=== PATIENT | female | born 1980 | race Caucasian/White ===

== ENCOUNTER 2021-07-16 23:46 | Inpatient (IN) | payer MEDICAID ==
[~2021-07-16] VITALS: Ht 165.1 cm; Wt 99.8 kg
[~2021-07-16 23:46] MED LIST: CLOP-31
[2021-07-17] MEDS ORDERED: SODIUM CHLORIDE 0.9% 1,000 ML IV ONE (00:15)
[2021-07-17 00:33] LABS: BASOPHILS % 0.1 % (0.0-2.0); HEMATOCRIT. 35.5 % (36.0-48.0); HEMOGLOBIN. 11.6 g/dL (12.0-16.0); LYMPHOCYTES % 8.6 % (20.0-50.0); MEAN CORPUSCULAR HEMOGLOBIN 26.8 pg (28.0-32.0); MEAN CORPUSCULAR VOLUME 82.3 fL (81.0-99.0); MEAN PLATELET VOLUME 9.9 fl (7.4-10.4); MONOCYTES % 5.6 % (2.0-8.0); NEUTROPHILS % 85.7 % (40.0-76.0); PLATELET 252 x1000/uL (130-400); RED BLOOD CELL COUNT 4.31 mill/uL (4.2-5.4); RED CELL DISTRIBUTION WIDTH 15.4 % (11.6-14.6)
[2021-07-17 00:37] LABS: CHLORIDE 111 mEq/L (98-107)
[2021-07-17 00:38] LABS: HCG SCREEN NEGATIVE
[2021-07-17 00:41] LABS: ETHANOL BLOOD < 10 mg/dL
[2021-07-17 02:53] LABS: CLARITY URINE CLEAR (CLEAR); COLOR URINE YELLOW (YELLOW); KETONES URINE 1+ (NEGATIVE); LEUKOCYTE ESTERASE URINE NEGATIVE (NEGATIVE); NITRITE URINE NEGATIVE (NEGATIVE); OCCULT BLOOD URINE NEGATIVE (NEGATIVE); PH URINE 6.5 (4.5-8.0); PROTEIN URINE NEGATIVE (NEGATIVE); SPECIFIC GRAVITY URINE 1.025 (1.005-1.030); UROBILINOGEN URINE 0.2 E.U./dL (0.2-1.0)
[2021-07-17 03:02] LABS: *AMPHETAMINES SCREEN URINE NEGATIVE (NEGATIVE); *BARBITURATES SCREEN URINE NEGATIVE (NEGATIVE); *BENZODIAZEPINES SCREEN URINE NEGATIVE (NEGATIVE); *COCAINE SCREEN URINE NEGATIVE (NEGATIVE)
[2021-07-17 03:03] LABS: CANNABINOID URINE SCREEN NEGATIVE (NEGATIVE); METHADONE URINE SCREEN NEGATIVE (NEGATIVE); OPIATES URINE SCREEN NEGATIVE (NEGATIVE); PHENCYCLIDINE URINE SCREEN NEGATIVE (NEGATIVE)
[2021-07-17 08:25] VITALS: BP 169/105
[2021-07-17 10:37] VITALS: BP 169/105
[2021-07-17 12:00] VITALS: BP 168/94
[2021-07-17] MEDS ORDERED: CLONIDINE 0.1MG TABLET PO PRN (12:15)
[2021-07-17] MEDS ORDERED: ONDANSETRON HCL 4MG/2ML INJ IV PRN (12:15)
[2021-07-17] MEDS ORDERED: ENOXAPARIN 40MG/0.4ML SYR SUBCUT SCH (12:15)
[2021-07-17] MEDS ORDERED: ACETAMINOPHEN 325MG TABLET PO PRN (12:15)
[2021-07-17] MEDS: ENOXAPARIN 30MG/0.3ML SYR SUBCUT SCH ×2 (15:17→22:54)
[2021-07-17 16:00] VITALS: BP 159/91
[2021-07-17 17:04] LABS: CREATINE KINASE MB FRACTION 3.5 ng/mL (0.5-3.6)
[2021-07-17] MEDS: SODIUM CHLORIDE 0.9% 1,000 ML IV SCH (22:53)
[2021-07-18] VITALS (7 sets, daily range): BP systolic 145–166; BP diastolic 94–106
[2021-07-18] MEDS: HYDRALAZINE 20MG/ML VIAL IV PRN ×2 (00:15→11:45)
[2021-07-18 00:46] LABS: CREATINE KINASE 147 IU/L (26-192)
[2021-07-18 08:44] LABS: BASOPHILS % 0.1 % (0.0-2.0); HEMATOCRIT. 35.2 % (36.0-48.0); HEMOGLOBIN. 11.5 g/dL (12.0-16.0); LYMPHOCYTES % 8.4 % (20.0-50.0); MEAN CORPUSCULAR HEMOGLOBIN 26.7 pg (28.0-32.0); MEAN CORPUSCULAR VOLUME 81.6 fL (81.0-99.0); MONOCYTES % 6.4 % (2.0-8.0); NEUTROPHILS % 85.1 % (40.0-76.0); PLATELET 237 x1000/uL (130-400); RED BLOOD CELL COUNT 4.32 mill/uL (4.2-5.4); RED CELL DISTRIBUTION WIDTH 15.5 % (11.6-14.6)
[2021-07-18] MEDS: ENOXAPARIN 30MG/0.3ML SYR SUBCUT SCH ×2 (08:56→21:19)
[2021-07-18 09:14] LABS: CHLORIDE 109 mEq/L (98-107)
[2021-07-18 09:22] LABS: HDL CHOLESTEROL 34 mg/dL (40-59)
[2021-07-18 09:24] LABS: LDL CHOLESTEROL 133 mg/dL (5-100)
[2021-07-18] MEDS: SODIUM CHLORIDE 0.9% 1,000 ML IV SCH (11:38)
[2021-07-18] MEDS: KCL 20MEQ/100ML PREMIX 100 ML IV SCH ×2 (15:18→17:50)
[2021-07-18] MEDS ORDERED: GADOTERATE MEGLUMINE 5 MMOL/10 ML VIAL IV ONE (17:17)
[2021-07-18 19:51] LABS: FOLIC ACID (FOLATE) SERUM 11.8 ng/mL (>5.38)
[2021-07-18 21:35] LABS: T4 FREE 2.21 ng/dL (0.76-1.46)
[2021-07-19] VITALS: BP 155/89
[2021-07-19] MEDS: HYDRALAZINE 20MG/ML VIAL IV PRN (00:57)
[2021-07-19] MEDS: SODIUM CHLORIDE 0.9% 1,000 ML IV SCH ×2 (01:44→14:36)
[2021-07-19 04:00] VITALS: BP_SYST 108; BP_SYST 143; BP_DIAS 70; BP_DIAS 88
[2021-07-19 08:00] VITALS: BP 144/87
[2021-07-19] MEDS: ENOXAPARIN 30MG/0.3ML SYR SUBCUT SCH ×2 (09:31→20:06)
[2021-07-19 12:00] VITALS: BP 142/86
[2021-07-19 16:00] VITALS: BP 120/75
[2021-07-19] MEDS: CLOPIDOGREL 75MG TABLET PO SCH (18:34)
[2021-07-19 20:00] VITALS: BP 125/78
[2021-07-20] VITALS: BP 122/70
[2021-07-20] MEDS: SODIUM CHLORIDE 0.9% 1,000 ML IV SCH ×2 (03:58→17:27)
[2021-07-20 04:00] VITALS: BP 135/81
[2021-07-20 08:00] VITALS: BP 148/85
[2021-07-20] MEDS: ENOXAPARIN 30MG/0.3ML SYR SUBCUT SCH ×2 (09:11→21:15)
[2021-07-20] MEDS: CLOPIDOGREL 75MG TABLET PO SCH (09:11)
[2021-07-20 12:00] VITALS: BP 144/90
[2021-07-20] MEDS ORDERED: AMLODIPINE 5MG TABLET PO NR (13:00)
[2021-07-20] MEDS ORDERED: AMLO5TAB4 MT (14:46)
[2021-07-20] MEDS ORDERED: ATOR20TA MT (14:47)
[2021-07-20 16:00] VITALS: BP 149/99
[2021-07-20] MEDS ORDERED: RISPERIDONE 1MG TABLET PO NR (17:00)
[2021-07-20 20:00] VITALS: BP 138/86
[2021-07-20] MEDS: RISPERIDONE 1MG TABLET PO SCH (21:15)
[2021-07-21] VITALS: BP 141/84
[2021-07-21 04:00] VITALS: BP 136/82
[2021-07-21] MEDS: SODIUM CHLORIDE 0.9% 1,000 ML IV SCH ×2 (05:49→22:34)
[2021-07-21 07:55] VITALS: BP 146/88
[2021-07-21] MEDS: ENOXAPARIN 30MG/0.3ML SYR SUBCUT SCH ×2 (08:57→22:26)
[2021-07-21] MEDS: AMLODIPINE 5MG TABLET PO SCH (08:57)
[2021-07-21] MEDS: CLOPIDOGREL 75MG TABLET PO SCH (08:58)
[2021-07-21 11:35] VITALS: BP 134/51
[2021-07-21 16:05] VITALS: BP 137/89
[2021-07-21 20:00] VITALS: BP 128/72
[2021-07-21] MEDS: RISPERIDONE 1MG TABLET PO SCH (22:26)
[2021-07-22] VITALS: BP 126/69
[2021-07-22 08:00] VITALS: BP 151/93
[2021-07-22] MEDS: SODIUM CHLORIDE 0.9% 1,000 ML IV SCH (09:20)
[2021-07-22] MEDS: ENOXAPARIN 30MG/0.3ML SYR SUBCUT SCH ×2 (09:21→21:44)
[2021-07-22] MEDS: AMLODIPINE 5MG TABLET PO SCH (09:21)
[2021-07-22] MEDS: CLOPIDOGREL 75MG TABLET PO SCH (09:21)
[2021-07-22 12:00] VITALS: BP 142/86
[2021-07-22 16:00] VITALS: BP 146/82
[2021-07-22 20:00] VITALS: BP 138/86
[2021-07-22] MEDS: RISPERIDONE 1MG TABLET PO SCH (21:44)
[2021-07-23] VITALS (7 sets, daily range): BP systolic 102–143; BP diastolic 66–95
[2021-07-23] MEDS: SODIUM CHLORIDE 0.9% 1,000 ML IV SCH ×2 (04:59→10:26)
[2021-07-23] MEDS: ENOXAPARIN 30MG/0.3ML SYR SUBCUT SCH ×2 (09:06→20:57)
[2021-07-23] MEDS: AMLODIPINE 5MG TABLET PO SCH (09:07)
[2021-07-23] MEDS: CLOPIDOGREL 75MG TABLET PO SCH (10:26)
[2021-07-23] MEDS: RISPERIDONE 1MG TABLET PO SCH ×2 (20:57→23:30)
[2021-07-24] VITALS: BP 112/71
[2021-07-24 04:00] VITALS: BP 147/89
[2021-07-24 08:00] VITALS: BP 124/84
[2021-07-24] MEDS: CLOPIDOGREL 75MG TABLET PO SCH (08:50)
[2021-07-24] MEDS: AMLODIPINE 5MG TABLET PO SCH (08:50)
[2021-07-24] MEDS: RISPERIDONE 1MG TABLET PO SCH ×2 (08:50→21:11)
[2021-07-24] MEDS: ENOXAPARIN 30MG/0.3ML SYR SUBCUT SCH ×2 (08:50→21:11)
[2021-07-24 12:00] VITALS: BP 137/85
[2021-07-24] MEDS ORDERED: RISP1 PO (12:41)
[2021-07-24 16:00] VITALS: BP 125/79
[2021-07-24 16:47] LABS: HEMATOCRIT 30.7 % (36.0-48.0); HEMOGLOBIN 10.3 g/dL (12.0-16.0); MEAN CORPUSCULAR HEMOGLOBIN 27.4 pg (28.0-32.0); MEAN CORPUSCULAR VOLUME 81.3 fL (81.0-99.0); PLATELET 233 x1000/uL (130-400); RED BLOOD CELL COUNT 3.78 mill/uL (4.2-5.4); RED CELL DISTRIBUTION WIDTH 15.3 % (11.6-14.6)
[2021-07-24 17:08] LABS: CHLORIDE 110 mEq/L (98-107)
[2021-07-24 20:00] VITALS: BP 145/92
[2021-07-24] MEDS ORDERED: POTASSIUM CHLORIDE 20MEQ/PACKET PO NR (22:36)
[2021-07-25] VITALS: BP 135/87
[2021-07-25 04:00] VITALS: BP 119/80
[2021-07-25 07:30] LABS: HEMATOCRIT 32.5 % (36.0-48.0); HEMOGLOBIN 10.6 g/dL (12.0-16.0); MEAN CORPUSCULAR HEMOGLOBIN 26.5 pg (28.0-32.0); MEAN CORPUSCULAR VOLUME 81.3 fL (81.0-99.0); PLATELET 233 x1000/uL (130-400); RED BLOOD CELL COUNT 3.99 mill/uL (4.2-5.4)
[2021-07-25 08:00] VITALS: BP 141/89
[2021-07-25 08:12] LABS: CHLORIDE 109 mEq/L (98-107)
[2021-07-25] MEDS: CLOPIDOGREL 75MG TABLET PO SCH (09:18)
[2021-07-25] MEDS: AMLODIPINE 5MG TABLET PO SCH (09:18)
[2021-07-25] MEDS: RISPERIDONE 1MG TABLET PO SCH ×2 (09:18→21:45)
[2021-07-25] MEDS: ENOXAPARIN 30MG/0.3ML SYR SUBCUT SCH ×2 (09:19→21:49)
[2021-07-25 12:00] VITALS: BP 124/79
[2021-07-25] MEDS: METOPROLOL SUCCINATE 50MG ER TABLET PO SCH (15:50)
[2021-07-25 16:00] VITALS: BP 110/71
[2021-07-25 20:00] VITALS: BP 118/83
[2021-07-26] VITALS: BP 120/72
[2021-07-26 04:00] VITALS: BP 115/74
[2021-07-26 08:00] VITALS: BP 117/84
[2021-07-26] MEDS: RISPERIDONE 1MG TABLET PO SCH (08:51)
[2021-07-26] MEDS: CLOPIDOGREL 75MG TABLET PO SCH (08:51)
[2021-07-26] MEDS: ENOXAPARIN 30MG/0.3ML SYR SUBCUT SCH (08:52)
[2021-07-26] MEDS: METOPROLOL SUCCINATE 50MG ER TABLET PO SCH ×2 (09:00→10:38)
[2021-07-26 12:00] VITALS: BP 109/67
[2021-07-26 16:00] VITALS: BP_SYST 109; BP_SYST 152; BP_DIAS 72; BP_DIAS 99
[2021-07-26 16:35] VITALS: BP 109/72
== END 2021-07-26 19:05 | disposition home or self-care (01) | DRG 52 ==
LOC: ER 23:46 → 5WST 07-17 04:46 → ENRESERV 07-17 07:10 → ER 07-17 08:02
PROVIDERS: ADMIT Internal Medicine; ATTEND Internal Medicine
PROC: 4A10X4Z Monitoring of Central Nervous Electrical Activity, External Approach (ICD-10-PCS; principal; 2021-07-19)
DX: G92.8 Other toxic encephalopathy (principal); I27.20 Pulmonary hypertension, unspecified; E78.5 Hyperlipidemia, unspecified; I10 Essential (primary) hypertension; I36.1 Nonrheumatic tricuspid (valve) insufficiency; Z20.822 Contact with and (suspected) exposure to COVID-19; Z86.73 Personal history of transient ischemic attack (TIA), and cerebral infarction without residual deficits; Z88.6 Allergy status to analgesic agent; Z79.02 Long term (current) use of antithrombotics/antiplatelets; Q21.1 Atrial septal defect
CPT/HCPCS: 36415; 70553; 71045; 80048; 80053; 80061; 80305; 80307; 80320; 80329; 81003; 82140; 82550; 82553; 82607; 82746; 83036; 83605; 83735; 83880; 84439; 84443; 84481; 84484; 84703; 85025; 85027; 87426; 93005; 93306; 93880; 97116; 97162; 97530; 99285; A9577; J0360; J1650; J3480; J7030; G0480

== ENCOUNTER → 2022-11-21 | Day surgery (SDC) | payer MEDICAID ==
[~2022-11-21] MED LIST changes: +AMLO5TAB4 MT; +ATOR20TA MT; +B1/B1TAB5 MT; +METO-411 PO; +RISP1 PO; +SULF1TAB48 MT
== END | disposition home or self-care (01) ==
LOC: RAD 09:47
PROVIDERS: ATTEND Surgery
DX: C50.911 Malignant neoplasm of unspecified site of right female breast (principal); I10 Essential (primary) hypertension; E78.00 Pure hypercholesterolemia, unspecified; D50.9 Iron deficiency anemia, unspecified; Z79.899 Other long term (current) drug therapy; Z98.890 Other specified postprocedural states; Z88.8 Allergy status to other drugs, medicaments and biological substances
CPT/HCPCS: 19281; A4648

== ENCOUNTER → 2022-11-28 | Day surgery (SDC) | payer MEDICAID ==
[~2022-11-28] VITALS: Ht 167.6 cm; Wt 108.4 kg
[~2022-11-28] MED LIST changes: +BUPIVACAINE HCL/PF 0.5% (5MG/ML) 10ML ONE; +FENTANYL CITRATE/PF 50MCG/ML 2ML VIAL ONE; +HYDROCODONE/ACETAMINOPHEN 5/325MG TABLET PO NR; +LACTATED RINGERS 1,000 ML IV ONE; +LIDOCAINE HCL 1% 10 MG/ML 10ML VIAL ONE; +METHYLENE BLUE 50 MG/10 ML AMP IV ONE; +PHENYLEPHRINE HCL 10 MG/ML 1ML (IV VIAL) IV ONE; +PROPOFOL 200MG/20ML VIAL IV ONE; +SKIN ADHESIVE 0.7 GM EA TOP ONE
[2022-11-28 08:43] LABS: UCG SCREEN NEGATIVE
[2022-11-28 12:05] VITALS: BP 153/96; PULSE 71; RESP 17
== END | disposition home or self-care (01) ==
LOC: OR 06:54 → EDSTATUS 07:30
PROVIDERS: ATTEND Surgery
DX: C50.911 Malignant neoplasm of unspecified site of right female breast (principal); I10 Essential (primary) hypertension; E78.00 Pure hypercholesterolemia, unspecified; I48.91 Unspecified atrial fibrillation; D64.9 Anemia, unspecified; Z79.82 Long term (current) use of aspirin; Z79.899 Other long term (current) drug therapy; Z98.890 Other specified postprocedural states
CPT/HCPCS: 81025; 88305; 76098; 78195; 19301; 38525; J3010; J3490 ×2; Q9968; J2370; J2704

== ENCOUNTER 2022-12-02 14:27 | Emergency (ER) | payer MEDICAID ==
[~2022-12-02] VITALS: Ht 167.6 cm; Wt 108.4 kg
[~2022-12-02 14:27] MED LIST changes: -BUPIVACAINE HCL/PF 0.5% (5MG/ML) 10ML ONE; -FENTANYL CITRATE/PF 50MCG/ML 2ML VIAL ONE; -HYDROCODONE/ACETAMINOPHEN 5/325MG TABLET PO NR; -LACTATED RINGERS 1,000 ML IV ONE; -LIDOCAINE HCL 1% 10 MG/ML 10ML VIAL ONE; -METHYLENE BLUE 50 MG/10 ML AMP IV ONE; -PHENYLEPHRINE HCL 10 MG/ML 1ML (IV VIAL) IV ONE; -PROPOFOL 200MG/20ML VIAL IV ONE; -SKIN ADHESIVE 0.7 GM EA TOP ONE; -SULF1TAB48 MT
[2022-12-02 14:45] VITALS: O2SAT 98
[2022-12-02] MEDS ORDERED: SULF1TAB48 MT (16:44)
[2022-12-02 17:10] VITALS: BP 127/86; PULSE 84; RESP 16; TEMP 98.5
== END 2022-12-02 17:12 | disposition home or self-care (01) ==
LOC: ER 14:27
DX: N61.1 Abscess of the breast and nipple (principal); I10 Essential (primary) hypertension; Z86.73 Personal history of transient ischemic attack (TIA), and cerebral infarction without residual deficits; Z79.899 Other long term (current) drug therapy
CPT/HCPCS: 99281; Z7610 ×2

== ENCOUNTER 2023-07-09 05:18 | Emergency (ER) | payer MEDICAID ==
[~2023-07-09] VITALS: Ht 167.6 cm; Wt 110.0 kg
[~2023-07-09 05:18] MED LIST changes: -AMLO5TAB4 MT; -RISP1 PO; +SULF1TAB48 MT
[2023-07-09 05:31] VITALS: O2SAT 100
[2023-07-09 09:08] LABS: HEMATOCRIT. 33.2 % (36.0-48.0); HEMOGLOBIN. 10.8 g/dL (12.0-16.0); MEAN CORPUSCULAR HEMOGLOBIN 27.6 pg (28.0-32.0); MEAN CORPUSCULAR HGB CONC 32.6 g/dL (31.0-37.0); MEAN CORPUSCULAR VOLUME 84.6 fL (81.0-99.0); PLATELET 221 x1000/uL (130-400); RED BLOOD CELL COUNT 3.92 mill/uL (4.2-5.4); RED CELL DISTRIBUTION WIDTH 18.4 % (11.6-14.6); WHITE BLOOD COUNT 6.9 x1000/uL (4.5-11.0)
[2023-07-09] MEDS: ACETAMINOPHEN 325MG TABLET PO ONE (09:15)
[2023-07-09] MEDS: MECLIZINE 25MG TABLET PO ONE (09:15)
[2023-07-09 09:20] LABS: D-DIMER 0.93 mg/L FEU (<0.50); DIFFERENTIAL COMMENT 1; INR 0.9; PARTIAL THROMBOPLASTIN TIME 27.2 sec (23.4-31.0); PROTHROMBIN TIME 10.5 sec (9.6-11.0)
[2023-07-09 09:29] LABS: CLARITY URINE CLEAR (CLEAR); COLOR URINE YELLOW (YELLOW); GLUCOSE URINE NEGATIVE (NEGATIVE); KETONES URINE NEGATIVE (NEGATIVE); LEUKOCYTE ESTERASE URINE NEGATIVE (NEGATIVE); NITRITE URINE NEGATIVE (NEGATIVE); OCCULT BLOOD URINE NEGATIVE (NEGATIVE); PROTEIN URINE NEGATIVE (NEGATIVE); SPECIFIC GRAVITY URINE 1.008 (1.005-1.030); UROBILINOGEN URINE 0.2 E.U./dL (0.2-1.0)
[2023-07-09 09:35] LABS: ALANINE AMINOTRANSFERASE 17 IU/L (10-49); ALBUMIN 4.5 g/dL (3.2-4.8); ASPARTATE AMINOTRANSFERASE 20 IU/L (<34); BILIRUBIN TOTAL 0.9 mg/dL (0.1-1.0); CALCIUM 9.1 mg/dL (8.7-10.4); CARBON DIOXIDE 28 mEq/L (21-32); CHLORIDE 106 mEq/L (98-107); CREATININE 0.5 mg/dL (0.6-1.0); GLUCOSE 89 mg/dL (70-105); POTASSIUM 3.8 mEq/L (3.5-5.1); PROTEIN TOTAL 7.2 g/dL (6.0-8.3); SODIUM 139 mEq/L (136-145); UREA NITROGEN BLOOD 7 mg/dL (9-23)
[2023-07-09 09:37] LABS: TROPONIN I HIGH SENSITIVITY < 4 ng/L (3.0-34)
[2023-07-09 09:56] LABS: HCG SCREEN NEGATIVE
[2023-07-09 10:12] LABS: PLATELET ESTIMATE NORMAL
[2023-07-09] MEDS ORDERED: IOHEXOL-350 100 ML BOTTLE ONE (11:32)
[2023-07-09] MEDS ORDERED: IBUP-2029 MT (11:42)
[2023-07-09] MEDS ORDERED: ALBU6.7H15 INH (12:15)
[2023-07-09 12:26] VITALS: BP 150/95; PULSE 99; RESP 19; TEMP 98.5
== END 2023-07-09 13:14 | disposition home or self-care (01) ==
LOC: ER 05:36
DX: R07.89 Other chest pain (principal); G44.209 Tension-type headache, unspecified, not intractable; I10 Essential (primary) hypertension; E78.00 Pure hypercholesterolemia, unspecified; Z88.6 Allergy status to analgesic agent; Z86.73 Personal history of transient ischemic attack (TIA), and cerebral infarction without residual deficits
CPT/HCPCS: 99285; 71275; 71045; 80053; 81003; 84703; 85025; 85379; 85610; 85730; 84484; 36415; 70450; 93005; Q9967; J8597